=== PATIENT | male | born 1995 | race Two or more races ===

== ENCOUNTER 2018-11-09 21:49 | Emergency (ER) | payer MEDICAID, OTHER ==
[~2018-11-09] VITALS: Ht 175.3 cm; Wt 86.2 kg
[2018-11-09 22:00] VITALS: BP 147/90
== END 2018-11-09 23:17 | disposition left against medical advice (07) ==
LOC: EDBD 21:49 → ER 21:49
DX: T78.1XXA Other adverse food reactions, not elsewhere classified, initial encounter (principal); R06.02 Shortness of breath; R07.0 Pain in throat; X58.XXXA Exposure to other specified factors, initial encounter; Z53.21 Procedure and treatment not carried out due to patient leaving prior to being seen by health care provider